=== PATIENT | male | born 1960 | race Caucasian/White ===

== ENCOUNTER 2016-06-12 13:11 | Emergency (ER) | payer OTHER ==
[2016-06-12 13:36] VITALS: RESP 18
--- NOTE | 2016-06-12 14:02 | ED ---
Eye Problem HPI <Lacho Velez - Last Filed: 06/12/16 15:09> - General Source: patient, RN notes reviewed Mode of arrival: ambulatory Limitations: no limitations <Veronika Valera - Last Filed: 06/12/16 15:31> - General Chief complaint: Eye Problems Stated complaint: FB Eye Time Seen by Provider: 06/12/16 13:45 - History of Present Illness Initial comments: Patient is a 55-year-old male presents to the emergency room for evaluation of foreign body sensation in right eye. Patient states on he was grinding metal and thinks he got a piece stuck in his eye. Patient does state he was wearing protective safety glasses. Patient states he cannot see the piece of metal. Patient states he's having irritation mostly at night. Patient states he decided today he should probably get it evaluated. Patient denies changes in vision. Patient denies fevers or chills. Patient denies any pain while moving his eyes. Patient states his right eye feels irritated. Patient states he is not sure if is he is up to date on his tetanus vaccine. ( Veronika Valrea) - Related Data Home Medications Medication Instructions Recorded Confirmed Ibuprofen [Advil] 400 mg PO Q8HR PRN 06/12/16 06/12/16 Omeprazole 20 mg PO DAILY 06/12/16 06/12/16 Previous Rx's Medication Instructions Recorded Tobramycin 0.3% Ophth Oint [Tobrex 1 applic RIGHT EYE TID 7 Days 06/12/16 0.3% Ophth Oint] Allergies Allergy/AdvReac Type Severity Reaction Status Date / Time No Known Allergies Allergy Unverified 06/12/16 13:46 Review of Systems ROS Other: All systems not noted in ROS Statement are negative. <Lacho Velez - Last Filed: 06/12/16 15:09> ROS Other: All systems not noted in ROS Statement are negative. <Veronika Valera - Last Filed: 06/12/16 15:31> ROS Statement: Those systems with pertinent positive or pertinent negative responses have been documented in the HPI. Past Medical History Past Medical History: GERD/Reflux History of Any Multi-Drug Resistant Organisms: None Reported Past Surgical History: No Surgical Hx Reported Smoking Status: Former smoker Past Alcohol Use History: None Reported Past Drug Use History: None Reported <Veronika Valera - Last Filed: 06/12/16 15:31> General Exam <Lacho Velez - Last Filed: 06/12/16 15:09> Limitations: no limitations General appearance: alert, in no apparent distress Head exam: Present: atraumatic, normocephalic, normal inspection Expanded Eyelids: Normal Inspection: Bilateral Pupils: Regular, Round: Bilateral Sclera/Conjunctival: Normal Inspection: Bilateral ENT exam: Present: normal exam Neck exam: Present: normal inspection Respiratory exam: Absent: respiratory distress <Veronika Valera - Last Filed: 06/12/16 15:31> - General Exam Comments Initial Comments: Sitting in exam room, no acute distress. (Veronika Valera) Course <Lacho Velez - Last Filed: 06/12/16 15:09> <Veronika Valera - Last Filed: 06/12/16 15:31> Vital Signs 06/12/16 13:34 Temperature 97.5 F L Pulse Rate 100 Respiratory 18 Rate Blood Pressure 131/80 O2 Sat by Pulse 99 Oximetry Procedures <Lacho Velez - Last Filed: 06/12/16 15:09> <Veronika Valera - Last Filed: 06/12/16 15:31> - Procedures Initial comment: Procedure; the patient had a foreign body on the right cornea. It been numbed with mepivacaine. And then using sterile technique and a [place] brush. The foreign body was removed. No rust ring remained as it was a piece of sand. The patient will have Tobrex, ointment in the eye every 4 hours for next 24 hours. Told to keep his eye closed with cold compress over. Not to go to work. And if not 100% normal and 24-36 hours and follow-up with the supervisor inventory merchandising environmental services lead. Dr. Velez (Lacho Velez) Medical Decision Making <Lacho Velez - Last Filed: 06/12/16 15:09> <Veronika Valera - Last Filed: 06/12/16 15:31> - Medical Decision Making Patient is a 55-year-old male presents to the emergency room for evaluation of right eye foreign body sensation. No pieces of metal noted. No foreign body noted flipping eyelid. Small speck noted at 2 o'clock position. Patient's right eye was anesthetized and evaluated under Beyer lamp with fluorescein dye. No uptake noted. Patient's right eye was flushed with 500 mL of sterile water. Patient's right eye evaluated under slitlamp by Dr. Velez. Dr. Velez removed small foreign body with Kathleen brush. Patient started on tobramycin ointment and advised to follow-up with supervisor inventory merchandising if symptoms are not improving in 36 hours. Patient states he understands everything that was discussed with him. Return parameters discussed. (Veronika Valera) Disposition <Lacho Velez - Last Filed: 06/12/16 15:09> Time of Disposition: 15:12 <Veronika Valera - Last Filed: 06/12/16 15:31> Clinical Impression: Foreign body of right eye Disposition: HOME SELF-CARE Condition: Good Instructions: Eye Lubricant (Into the eye), Eye Foreign Body (ED) Additional Instructions: Apply ophthalmic ointment as directed. Tylenol or Motrin as needed for pain. If symptoms do not improve in 36 hours please follow up with supervisor inventory merchandising. If any new symptom arises or symptoms worsen, return to ER as soon as possible. Prescriptions: Tobramycin 0.3% Ophth Oint [Tobrex 0.3% Ophth Oint] 1 applic RIGHT EYE TID 7 Days Referrals: Reddy Rondon MD [STAFF PHYSICIAN] - 1-2 days
[2016-06-12] MEDS ORDERED: DIPH,PERTUS(ACELL)TETVAC-LF 0.5 ML VIAL IM ONE (15:09)
[2016-06-12] MEDS ORDERED: ERYTHROMYCIN 5 MG/GM OPHTH OINT 3.5 GM TUBE RIGHT EYE STA (15:10)
[2016-06-12] MEDS ORDERED: TOBRAMYCIN 0.3% OPHTH OINT 3.5 GM TUBE RIGHT EYE STA (15:11)
[2016-06-12 15:36] VITALS: BP 132/78; PULSE 61; TEMP 97.1
[2016-06-12] MEDS ORDERED: PROPARACAINE 0.5% OPHTH DROPS 15 ML BTL RIGHT EYE STA (15:40)
== END 2016-06-12 15:41 | disposition home or self-care (01) ==
LOC: EC 13:11
DX: T15.01XA Foreign body in cornea, right eye, initial encounter (principal); K21.9 Gastro-esophageal reflux disease without esophagitis; Z23 Encounter for immunization; Z79.899 Other long term (current) drug therapy; Z87.891 Personal history of nicotine dependence
CPT/HCPCS: 65222; 90471; 90715; 99283

== ENCOUNTER → 2019-12-20 | Outpatient (CLI) | payer OTHER ==
--- NOTE | 2019-12-23 21:04 | MR ---
EXAMINATION TYPE: MR cervical spine wo con DATE OF EXAM: 12/20/2019 COMPARISON: None HISTORY: 59-year-old male Neck pain, pain left shoulder, radiculopathy TECHNIQUE: Multiplanar, multisequence images of the cervical spine were acquired. FINDINGS: No craniocervical junction abnormality, predental space widening, or prevertebral soft tissue swellin g. Grade 1 retrolisthesis at C4-C5 and C5-C6. Remaining alignment is maintained. Heterogeneous marrow signal in part relating to Modic type III sclerotic endplate changes at C4-C5 an d C5-C6. Multilevel hypertrophic facet and uncovertebral joint arthropathy. Moderate degenerative disc disease with disc osteophyte complex formation, desiccated and narrowed discs particularly at C4-C7 levels. There is additional ligamentum flavum thickening is present. At C2-C3, facet arthropathy without significant canal or foraminal stenosis. At C3-C4, bilateral facet and uncovertebral joint arthropathy. Changes result in moderate right and m ild left neuroforaminal stenosis. No significant spinal canal stenosis. At C4-C5, disc osteophyte complex with uncovertebral joint and facet arthropathy as well as ligamentu m flavum thickening. Changes result in mild to moderate spinal canal stenosis with focal abutment and flattening of both the dorsal and ventral cord but no myelopathic cord signal change. Moderate to se christopher left greater than right neural foraminal stenosis. At C5-C6, similar changes are present with moderate spinal canal stenosis with abutment and flattenin g of both the dorsal and ventral cord. There is severe right and moderate to severe left neuroforamin al stenosis. At C6-C7, ligamentum flavum thickening with broad-based disc osteophyte complex with contiguous uncov ertebral joint arthropathy. Additional bilateral facet degenerative changes present. Changes result i n mild to moderate spinal canal stenosis with abutment of both the dorsal and ventral cord. Moderate to severe left and moderate right neuroforaminal stenosis. At C7-T1, facet arthropathy without significant canal or foraminal stenosis. Normal course of the cervical spinal cord. No T2-weighted cord signal abnormality. No prevertebral or paravertebral soft tissue abnormality. IMPRESSION: 1. Moderate disc/endplate degenerative changes especially from C4 through C7 levels along with ligame ntum flavum thickening. Multilevel hypertrophic facet and uncovertebral joint arthropathy. 2. Degenerative grade 1 retrolisthesis at C4-C5 and C5-C6. 3. Change result in a moderate spinal canal stenosis at C5-C6 and mild to moderate at C4-C5 and C6-C7 . There is abutment and flattening of the cord at both of these levels but no wilner canal compromise or myelopathic cord signal change. 4. Additional variable neuroforaminal stenoses as outlined above.
== END | disposition home or self-care (01) ==
LOC: RADMRIMAIN 13:57
PROVIDERS: ATTEND Orthopaedic Surgery Sports Medicine
DX: M48.02 Spinal stenosis, cervical region (principal); M43.12 Spondylolisthesis, cervical region; M47.22 Other spondylosis with radiculopathy, cervical region; M12.88 Other specific arthropathies, not elsewhere classified, other specified site; M53.82 Other specified dorsopathies, cervical region; M24.29 Disorder of ligament, other specified site
CPT/HCPCS: 72141

== ENCOUNTER → 2020-02-12 | Outpatient (CLI) | payer OTHER ==
--- NOTE | 2020-02-12 11:42 | XR ---
EXAMINATION TYPE: XR chest 2V DATE OF EXAM: 02/12/2020 COMPARISON: None INDICATION: Presurgical clearance TECHNIQUE: Frontal and lateral views of the chest are obtained. Costophrenic angles are excluded fro m the [id number]. FINDINGS: The heart size is normal. The pulmonary vasculature is normal. The lungs are clear. Some hyperinflation flattening the diaphragms suggestive for emphysematous henderson ge IMPRESSION: 1. No acute pulmonary process. 2. Hyperinflation. Consider early emphysema
[2020-02-12 12:07] LABS: HCT 46.5 % (39.0-53.0); HGB 15.5 gm/dL (13.0-17.5); MCH 30.1 pg (25.0-35.0); MCHC 33.3 g/dL (31.0-37.0); MCV 90.4 fL (80.0-100.0); Mean Platelet Volume 7.3; Platelet Count 325 k/uL (150-450); RBC 5.14 m/uL (4.30-5.90); RDW 13.4 % (11.5-15.5); WBC 4.9 k/uL (3.8-10.6)
[2020-02-12 12:18] LABS: Calcium 9.6 mg/dL (8.4-10.2); Potassium 4.7 mmol/L (3.5-5.1)
== END | disposition home or self-care (01) ==
LOC: LABPAT 10:41
PROVIDERS: ATTEND Orthopaedic Surgery Orthopaedic Surgery of the Spine
DX: R91.8 Other nonspecific abnormal finding of lung field (principal); M48.02 Spinal stenosis, cervical region
CPT/HCPCS: 36415; 71046; 80048; 85027; 85610; 93005

== ENCOUNTER 2020-02-18 06:06 | Day surgery (SDC) | payer OTHER ==
[2020-02-07 09:38] VITALS: BMI 23.7
[~2020-02-18 06:06] MED LIST: DEXAMETHASONE SOD PHOSPHATE 4 MG/ML 1 ML VIAL IV ONE; HYDROmorphone 0.5 MG/0.5 ML SYRINGE IVP PRN; LIDOCAINE 1% (10MG/ML) FOR IV START INTRADERMA PRN; ONDANSETRON 4 MG/2 ML VIAL IVP ONE; ceFAZolin 1,000 MG in SODIUM CHLORIDE 0.9% IRRIGATIO 1,000 ML IRRIGATION PRN
[2020-02-18] MEDS ORDERED: ONDANSETRON 4 MG/2 ML VIAL ONE (06:28)
[2020-02-18] MEDS ORDERED: LACTATED RINGERS 1,000 ML IV ONE ×2 (06:49→09:46)
[2020-02-18] MEDS ORDERED: LIDOCAINE 0.5%-EPI 1:200,000 50 ML VIAL SQ ONE (07:28)
[2020-02-18] MEDS ORDERED: GELATIN SPONGE,ABSORB (LARGE) 1 EACH SPONGE TOPICAL ONE (07:28)
[2020-02-18] MEDS ORDERED: THROMBIN (BOVINE) 5,000 UNIT VIAL TOPICAL ONE (07:28)
[2020-02-18] MEDS ORDERED: HYDROmorphone (PF) 1 MG/ML ONE (07:55)
[2020-02-18] MEDS ORDERED: LIDOCAINE 1% INJ 10MG/ML (20 ML MDV) ONE (07:55)
[2020-02-18] MEDS ORDERED: fentaNYL (PF) 50 MCG/ML 2 ML AMP ONE (07:55)
[2020-02-18] MEDS ORDERED: DEXAMETHASONE SOD PHOSPHATE 10 MG/ML 1 ML VIAL ONE (07:55)
[2020-02-18] MEDS ORDERED: PROPOFOL 10 MG/ML 20 ML VIAL IV ONE (07:55)
[2020-02-18] MEDS ORDERED: MIDAZOLAM 2 MG/2 ML VIAL ONE (07:55)
[2020-02-18] MEDS ORDERED: PHENYLEPHRINE 10 MG/ML VIAL ONE (07:55)
[2020-02-18] MEDS ORDERED: GLYCOPYRROLATE 0.2 MG/ML 2 ML VIAL ONE (07:55)
[2020-02-18] MEDS ORDERED: ePHEDrine SULFATE/0.9% NACL/PF 50 MG/5 ML SYRINGE IV ONE (07:55)
[2020-02-18] MEDS ORDERED: ROCURONIUM 10 MG/ML (10 ML VIAL) IV ONE (07:55)
[2020-02-18] MEDS ORDERED: NEOSTIGMINE 1 MG/ML 10 ML VIAL ONE (07:55)
[2020-02-18] MEDS ORDERED: SUCCINYLCHOLINE CHLORIDE 100 MG/5 ML SYR IV ONE (07:55)
--- NOTE | 2020-02-18 08:56 | XR ---
EXAMINATION TYPE: XR cervical spine 1V DATE OF EXAM: 02/18/2020 COMPARISON: NONE HISTORY: 59-year-old male needle placement TECHNIQUE: Crosstable lateral intraoperative view FINDINGS: Patient is intubated. Metallic needle enters the anterior C5-C6 disc interspace for surgical planning . Moderately advanced endplate spondylosis mid to lower cervical spine. IMPRESSION: Intraoperative view with the needle at the anterior C5-C6 disc interspace.
[2020-02-18] MEDS ORDERED: ONDANSETRON 4 MG/2 ML VIAL IVP ONE (09:55)
[2020-02-18] MEDS ORDERED: HYDROmorphone 1 MG/ML 1 ML SYRINGE IVP PRN (09:55)
[2020-02-18] MEDS ORDERED: HYDROmorphone 0.5 MG/0.5 ML SYRINGE IVP PRN (09:55)
[2020-02-18] MEDS ORDERED: HYDROcodone/APAP 5-325MG 1 EACH TAB PO PRN (09:55)
[2020-02-18] MEDS ORDERED: MAGNESIUM HYDROXIDE 2,400 MG/10 ML CUP PO PRN (09:55)
[2020-02-18] MEDS ORDERED: BENZOCAINE/MENTHOL LOZENG 1 EACH LOZENGE MUCOUS MEM PRN (09:55)
--- NOTE | 2020-02-18 10:02 | P.OP ---
Date of Procedure: 02/18/20 Preoperative Diagnosis: Cervical stenosis C4 5 C5 6 C6 7, herniated nucleus pulposis C4 5 C5 6 C6 7, upper extremity radiculopathy, degenerative disc disease, neck pain, upper extremity pain with weakness Postoperative Diagnosis: Same Anesthesia: GETA Pathology: none sent Condition: stable Disposition: PACU Description of Procedure: BRIEF OPERATIVE NOTE Preoperative Diagnosis:Cervical stenosis C4 5 C5 6 C6 7, herniated nucleus pulposis C4 5 C5 6 C6 7, upper extremity radiculopathy, degenerative disc disease, neck pain, upper extremity pain with weakness Postoperative Diagnosis:Cervical stenosis C4 5 C5 6 C6 7, herniated nucleus pulposis C4 5 C5 6 C6 7, upper extremity radiculopathy, degenerative disc disease, neck pain, upper extremity pain with weakness Procedure: Anterior cervical decompression with discectomy and fusion C4 5 C5 6 C6 7 Placement of interbody graft C4 5 C5 6 C6 7 Application of anterior cervical plate C4 5 6 and 7 Surgeon: Dr. Patterson Flight Engineer Performance Qualified: Karri Azevedo is present throughout the entire the case persistence during positioning, dissection, exposure, visualization, and all crucial elements of the case as well as closure. Anesthesia: General anesthesia Estimated blood loss: Approximately 30 mL Complications: None apparent Components implanted: K2M [place] anterior cervical plate system with screws and Vikos interbody allograft bone graft with 1 mL of DBX bone putty Disposition: To recovery room in good stable condition. OPERATIVE INDICATIONS The patient has had long-standing issues in their neck and upper extremities. He was having worsening symptoms at his upper extremity specifically on the left side. He was having some weakness at his left side along his pain. His found have significant stenosis with disc herniations at C4 5 C5 6 and C6 7 which correlated well with his neck and his upper extremity symptoms. The patient has been through conservative treatment. We discussed various treatment options including surgery, and the patient wishes to proceed with surgery We discussed the risk, patient's alternatives and benefits of surgery including but not limi joanie to, risk of bleeding risk of infection, risk of need for further surgery, risk of decreased, loss of motion, muscle function, malunion nonunion, hardware failure, nerve damage, paralysis, heart attack, and . OPERATIVE SUMMARY After discussing all the risks, patient alternatives and benefits at length, the patient elected to proceed with surgical intervention, signed informed consent, and presented for their procedure. The patient was seen and examined in the preoperative holding area and the surgical site was marked. The patient was given antibiotics and brought to the operating room. The patient was positioned on the operating room table in a supine position being careful to pad any bony prominences and pressure points. The patient was sedated and intubated by anesthesia in standard fashion. Once the airway and C- spine were stabilized the patient's arms were padded and tucked at her side, with her shoulders gently taped. The head was placed in a donut pad with the neck in good neutral alignment and position. We were careful to maintain the patient's cervical spine and good neutral alignment and position throughout. The patient was prepped and draped in a normal standard fashion. An appropriate timeout and keystone protocol performed. We were able to proceed with the surgery. The local wound area was infiltrated with local anesthetic. An incision was made transversely approximately 2-1/2 cm over the appropriate levels over the C5 6 level on the right. Dissection was taken down subcutaneously to the level of the platysma which was split in line with its fibers. Dissection was taken with a carotid approach, with the trachea and esophagus medial and the carotid sheath laterally. We dissected down to the anterior surface of the vertebral bodies. Intraoperative x-ray was taken which showed a marker at the appropriate level of C5 6. With the appropriate level positively confirmed, we were able to proceed with discectomy at the appropriate levels at C4 5 C5 6 and C6 7. All of the operative levels were exposed appropriately. The patient had all their twitches back, and there was no evidence of recurrent laryngeal issue. The wound was copiously irrigated and suctioned dry as had been done periodically throughout the case. At the appropriate level/levels, starting at C4 5 and then working the 56 and then 67, I established an annulotomy with an 11 blade scalpel. There are large anterior osteophytes which had removed a rongeur. A discectomy was performed with a combination of pituitary rongeurs, curettes, a high-speed bur, and Kerrison rongeurs. The posterior longitudinal ligament was taken down as were any posterior osteophytes. There were significant posterior osteophytes at each level knees were removed appropriately. This gave good central and bilateral foraminal decompression. There is no evidence of any dural tear or leak. The endplates were prepared with a high-speed bur. With the endplates in good parallel position, I was able to size for the appropriate size interbody graft. The wound was irrigated and suctioned dry the graft was prepared and malleted into position. It had good alignment and position with the anterior surface flush with the anterior surface of the vertebral bodies. This was done similarly the appropriate levels at C4 5 C5 6 and C6 7. With the grafts intact, I was able to measure and contour and appropriate sized plate. The plate was positioned at the midline over the appropriate levels from C4 to C7. Screw holes were established with a hand drill and drill guide. Screws were placed in good alignment and position with excellent bony purchase. They were seated under the locking device. The construct was checked and found to be stable. Intraoperative x-ray was taken which showed good alignment and position of the implants at the appropriate levels. There was no evidence of any dural tear or leak. Good hemostasis was maintained. The wound was copiously irrigated and suctioned dry as had been done periodically throughout the case. The platysma was closed with absorbable suture. The subcutaneous tissue was closed. The subcuticular tissue was closed with absorbable suture. The wound was cleaned and dried and dressed appropriately. A soft cervical collar was placed appropriately. The patient was woken up by anesthesia, extubated, transferred back gently to their hospital bed and brought to the recovery room in good stable condition. The patient will be admitted to the hospital for appropriate postoperative care, medical management and monitoring. We will continue to follow them closely about the postoperative course.
[2020-02-18 10:17] VITALS: RESP 16
--- NOTE | 2020-02-18 11:47 | XR ---
EXAMINATION TYPE: XR cervical spine 1V DATE OF EXAM: 02/18/2020 COMPARISON: Earlier today HISTORY: 59-year-old male hardware placement TECHNIQUE: Crosstable lateral intraoperative view FINDINGS: Patient remains intubated. Intraoperative views showing placement of C4-C7 ACDF. IMPRESSION: Interval placement of C4-C7 ACDF.
[2020-02-18] MEDS: LACTATED RINGERS 1,000 ML IV SCH ×3 (14:27→14:37)
[2020-02-18] MEDS: SODIUM CHLORIDE 0.9% 1,000 ML IV SCH (14:35)
[2020-02-18] MEDS: HYDROcodone/APAP 5-325MG 1 EACH TAB PO PRN (20:37)
[2020-02-19] MEDS: SODIUM CHLORIDE 0.9% 1,000 ML IV SCH (01:33)
[2020-02-19] MEDS: HYDROcodone/APAP 5-325MG 1 EACH TAB PO PRN (05:17)
[2020-02-19 07:46] VITALS: BP 110/67; PULSE 75; TEMP 99.1
[2020-02-19] MEDS: LACTATED RINGERS 1,000 ML IV SCH (08:10)
--- NOTE | 2020-02-19 08:54 | P.DS ---
Providers Date of admission: 02/18/2020 Expected date of discharge: 02/19/20 Attending physician: Eyad Patterson Primary care physician: Scot Moseley - Discharge Diagnosis(es) (1) Status post cervical arthrodesis Current Visit: Yes Status: Acute (2) Cervical disc herniation Current Visit: Yes Status: Acute (3) Cervical stenosis of spinal canal Current Visit: Yes Status: Acute (4) Upper extremity weakness Current Visit: Yes Status: Acute (5) Radiculopathy affecting upper extremity Current Visit: Yes Status: Acute (6) Cervicalgia Current Visit: Yes Status: Acute (7) Degenerative cervical disc Current Visit: Yes Status: Acute Hospital Course: This is a pleasant 59-year-old male who presented with C4-5, C5-6, and C6-7 herniated nucleus pulposis and cervical stenosis with cervicalgia, upper extremity radiculopathy, upper extremity weakness, and degenerative disc disease who failed outpatient conservative therapy. He was admitted for C4-5, C5-6, and C6-7 anterior cervical decompression and fusion. The patient tolerated the procedure well and did well postoperatively. He was experiencing some pain postoperatively yesterday but states his symptoms have significantly improved since that time. He feels his upper extremity radiculopathy has improved. He feels stronger in his left upper extremity. He is very happy with his progress following surgical intervention. He is ready for discharge today. Condition on day of discharge stable. Patient will be discharged home. Patient was cleared preoperatively for surgery by Scot Moseley TILE LAYER-C. Patient currently denies any nausea, vomiting, fever, or chills. Patient is eating and voiding freely without difficulty. Patient may shower Optifoam dressing intact. Patient may remove Optifoam dressing in 3 days and shower without a dressing at that time. Patient should refrain from driving until at least after their first follow-up appointment in the office. Patient should avoid excessive neck flexion, extension, rotation, and lateral sidebending; no overhead lifting; no lifting greater than 10 pounds. MAPS has been reviewed yesterday, 02/18/2020. An "Opiod Start Talking" Form has been signed and placed in the patient's chart. A prescription has been written for [place] 5 mg/325 mg 1 tab every 6 hours as needed for pain, dispense #28. Patient may resume other previously prescribed home medication. Patient should avoid anti-inflammatory medications over the next 6 weeks postoperatively. Physical Exam on day of discharge: Patient is awake, alert, and oriented 3 Vital signs stable Good chest excursion with deep inspiration and expiration Adequate range of motion of the cervical spine with adequate flexion, extension, and bilateral rotation Conduit Helper strength, thumb strength, interosseous strength, biceps strength, triceps strength, and shoulder strength positive sustained bilaterally Patient is able to perform active range of motion of bilateral upper extremities without significant difficulty Soft cervical collar intact Incision is clean, dry, and intact; no erythema, purulence, or signs of infection Optifoam dressing intact Procedures: C4-5, C5-6, and C6-7 anterior cervical decompression and fusion Patient Condition at Discharge: Stable Plan - Discharge Summary Discharge Rx Participant: Yes New Discharge Prescriptions: New HYDROcodone/APAP 5-325MG [[place] 5] 1 each PO Q6HR PRN #28 tab PRN Reason: Pain No Action Omeprazole 20 mg PO DAILY Discharge Medication List Omeprazole 20 mg PO DAILY 06/12/16 [History] HYDROcodone/APAP 5-325MG [[place] 5] 1 each PO Q6HR PRN #28 tab 02/18/20 [Rx] Follow up Appointment(s)/Referral(s): Eyad Patterson DO [Doctor of Osteopathic Medicine] - 2 Weeks Activity/Diet/Wound Care/Special Instructions: Keep site clean. May shower with waterproof Optifoam intact. Do not soak in a tub. After 72 hours postoperatively, patient may remove dressing and then may shower with area uncovered. May ambulate as tolerated. Avoid heavy or rigorous activity. No repetitive bending twisting or lifting. Avoid overhead lifting. Take medications as prescribed. No overhead work. Discharge Disposition: HOME SELF-CARE
[2020-02-19] MEDS ORDERED: SENNOSIDES-DOCUSATE SODIUM 1 EACH TAB PO SCH (09:00)
== END 2020-02-19 10:47 | disposition home or self-care (01) ==
LOC: OR 06:06 → 4SSUR 09:54 → OR 02-19 10:47
PROVIDERS: ATTEND Orthopaedic Surgery Orthopaedic Surgery of the Spine
DX: M48.02 Spinal stenosis, cervical region (principal); M50.121 Cervical disc disorder at C4-C5 level with radiculopathy; M43.13 Spondylolisthesis, cervicothoracic region; M25.78 Osteophyte, vertebrae; K21.9 Gastro-esophageal reflux disease without esophagitis; K44.9 Diaphragmatic hernia without obstruction or gangrene; Z98.890 Other specified postprocedural states; Z79.899 Other long term (current) drug therapy; Z79.1 Long term (current) use of non-steroidal anti-inflammatories (NSAID); Z79.3 Long term (current) use of hormonal contraceptives; Z87.19 Personal history of other diseases of the digestive system; Z87.891 Personal history of nicotine dependence; Z88.2 Allergy status to sulfonamides
CPT/HCPCS: 97161; 86900; 86901; 85730; 86850; 72020; 22551; 22552 ×2; 22845; 20931; C1713 ×2; C1762; J2250; J1100; J2370; J2710; J0690 ×3; J2405; J2001; J3010; J1170 ×2; J0330; J2704

== ENCOUNTER → 2020-06-05 | Outpatient (CLI) | payer OTHER ==
--- NOTE | 2020-06-05 14:21 | MR ---
EXAMINATION TYPE: MR shoulder LT wo con DATE OF EXAM: 06/05/2020 COMPARISON: None. HISTORY: Pain in left shoulder, loss of ROM x 5 months, impingement syndrome left upper extremity rad iculopathy. TECHNIQUE: Multiplanar, multisequence imaging of the left shoulder is performed without contrast. FINDINGS: Rotator Cuff: Small focal articular surface tear anterior one half fibers distal supraspinatus measur ing 6 mm AP diameter sagittal image 6 and 7 mm transversely coronal image 11. Infraspinatus tendon in tact and within normal limits. Subscapularis tendon intact. Rotator cuff muscle bulk preserved. Acromioclavicular Joint: Moderate narrowing with mild spurring, underlying fat plane maintained. Dist al acromion morphology unremarkable. Glenohumeral Joint: Mild to moderate narrowing with small joint effusion. No significant spurring. Labrum: The superior labrum shows increased signal consistent with full-thickness degenerative tear g iven limitation of nonarthrogram study. Biceps Tendon: The long head of biceps is in normal location within bicipital groove. Bone marrow signal: Some tiny subchondral cysts in the posterior superior humeral head coronal image 18 and sagittal image 8. Other: No additional significant abnormality is appreciated. IMPRESSION: 1. Focal articular surface partial tearing of the distal supraspinatus tendon. 2. Mild to moderate degenerative changes in the left shoulder as detailed above with degenerative sup erior labral tear thought present.
== END | disposition home or self-care (01) ==
LOC: RADMRIMAIN 12:14
PROVIDERS: ATTEND Orthopaedic Surgery Orthopaedic Surgery of the Spine
DX: S46.012A Strain of muscle(s) and tendon(s) of the rotator cuff of left shoulder, initial encounter (principal); S43.432A Superior glenoid labrum lesion of left shoulder, initial encounter; M19.012 Primary osteoarthritis, left shoulder; M75.42 Impingement syndrome of left shoulder; M48.02 Spinal stenosis, cervical region; M50.321 Other cervical disc degeneration at C4-C5 level; M43.12 Spondylolisthesis, cervical region; Z98.1 Arthrodesis status

== ENCOUNTER → 2021-09-15 | Outpatient (CLI) | payer OTHER ==
--- NOTE | 2021-09-15 09:16 | CT ---
EXAMINATION TYPE: CT foot RT wo con CT DLP: 175.10 mGycm, Automated exposure control for dose reduction was used. 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 Additional c oronal and sagittal reformatted images and soft tissue and bone window were obtained for review. 3-D reconstruction was created on a separate workstation. FINDINGS: A fixation screw is seen through the first digit proximal phalanx with hardware intact. The re is partial fusion identified on today's exam. There Additional fixation screws are seen through t he first digit metacarpal with partial fusion demonstrated. The screws appear intact. No evidence for acute fracture. No evidence or joint dislocation. Soft tissue is grossly unremarkable. IMPRESSION: Post fixation changes to the first digit proximal phalanx and metacarpal with hardware intact and par tial osseous fusion demonstrated.
== END | disposition home or self-care (01) ==
LOC: RADCTMAIN 08:13
PROVIDERS: ATTEND Podiatrist
DX: Z48.89 Encounter for other specified surgical aftercare (principal); M65.871 Other synovitis and tenosynovitis, right ankle and foot; M96.0 Pseudarthrosis after fusion or arthrodesis; M20.11 Hallux valgus (acquired), right foot